=== PATIENT | female | born 1990 | race African-American/Black ===

== ENCOUNTER 2017-08-25 18:17 | Emergency (ER) | payer OTHER ==
[~2017-08-25] VITALS: Ht 162.6 cm; Wt 100.7 kg
[2017-08-25 19:33] LABS: HEMATOCRIT 38.7 % (36.0-46.0); MCH 27.2 PG (29.0-34.0); MCHC 33.1 G/DL (30.0-36.0); MCV 82.3 FL (83-99); MEAN PLAT.VOLUME 10.3 uM^3 (9.5-12.4); PLATELET COUNT 380 K/uL (156-360); RBC DIS.WIDTH-CV 13.8 % (11.8-14.6); RBC DIS.WIDTH-SD 41.2 % (39-53); WHITE BLOOD COUNT 12.1 K/uL (4.1-10.2)
[2017-08-25 19:42] LABS: CHLORIDE 104 mEq/L (99-109); POTASSIUM 4.2 mEq/L (3.7-5.4); SODIUM 137 mEq/L (136-147)
[2017-08-25 19:43] LABS: GLUCOSE 86 mg/dL (70-99)
[2017-08-25 19:45] LABS: ANION GAP 8 MEQ/L (2-14)
[2017-08-25 19:48] LABS: UREA NITROGEN (BUN) 9 mg/dL (9-23)
[2017-08-25 19:49] LABS: GFR ESTIMATE (CALCULATED) > 59 mL/min/
[2017-08-25 19:54] LABS: TROP-I INTERPRETATION NEGATIVE; TROPONIN-I < 0.01 ng/mL (0.0-0.30)
[2017-08-25 20:15] LABS: QUANTITATIVE HCG 76423.9 MIU/ML
[2017-08-26 01:05] VITALS: BP 119/64
== END 2017-08-26 01:05 | disposition home or self-care (01) ==
LOC: EME 18:17
DX: O26.891 Other specified pregnancy related conditions, first trimester (principal); R07.9 Chest pain, unspecified; Z3A.08 8 weeks gestation of pregnancy
CPT/HCPCS: 71020; 71275; 80048; 83880; 84484; 84702; 85027; 85379; 93005; 99281; 99285; J7030